=== PATIENT | female | born 1960 | race African-American/Black ===

== ENCOUNTER 2019-11-11 10:37 | Inpatient (IN) | payer BC, OTHER ==
[~2019-11-11] VITALS: Ht 170.2 cm; Wt 129.7 kg
[2019-11-11 11:40] LABS: CHLORIDE 107 mEq/L (98-107)
[2019-11-11 11:41] LABS: CLARITY URINE CLEAR (CLEAR); COLOR URINE YELLOW (YELLOW); KETONES URINE NEGATIVE (NEGATIVE); LEUKOCYTE ESTERASE URINE NEGATIVE (NEGATIVE); NITRITE URINE NEGATIVE (NEGATIVE); OCCULT BLOOD URINE NEGATIVE (NEGATIVE); PH URINE 7.5 (4.5-8.0); PROTEIN URINE NEGATIVE (NEGATIVE); SPECIFIC GRAVITY URINE 1.014 (1.005-1.030); UROBILINOGEN URINE 0.2 E.U./dL (0.2-1.0)
[2019-11-11 11:42] LABS: BASOPHILS % 0.3 % (0.0-2.0); HEMATOCRIT. 38.6 % (36.0-48.0); HEMOGLOBIN. 13.1 g/dL (12.0-16.0); LYMPHOCYTES % 45.3 % (20.0-50.0); MEAN CORPUSCULAR HEMOGLOBIN 24.7 pg (28.0-32.0); MEAN CORPUSCULAR VOLUME 72.9 fL (81.0-99.0); MEAN PLATELET VOLUME 10.8 fl (7.4-10.4); MONOCYTES % 8.3 % (2.0-8.0); NEUTROPHILS % 44.1 % (40.0-76.0); PLATELET 158 x1000/uL (130-400); RED CELL DISTRIBUTION WIDTH 15.1 % (11.6-14.6)
[2019-11-11 11:50] LABS: ETHANOL BLOOD < 10 mg/dL
[2019-11-11 11:56] LABS: *AMPHETAMINES SCREEN URINE NEGATIVE (NEGATIVE); *BARBITURATES SCREEN URINE NEGATIVE (NEGATIVE); *BENZODIAZEPINES SCREEN URINE NEGATIVE (NEGATIVE); *COCAINE SCREEN URINE NEGATIVE (NEGATIVE); METHADONE URINE SCREEN NEGATIVE (NEGATIVE); OPIATES URINE SCREEN NEGATIVE (NEGATIVE)
[2019-11-11 11:57] LABS: CANNABINOID URINE SCREEN NEGATIVE (NEGATIVE); PHENCYCLIDINE URINE SCREEN NEGATIVE (NEGATIVE)
[2019-11-11] MEDS ORDERED: ASPIRIN 325MG EC TABLET PO ONE (13:15)
[2019-11-11] MEDS ORDERED: ONDANSETRON HCL 4MG/2ML INJ IV PRN (13:45)
[2019-11-11] MEDS ORDERED: ACETAMINOPHEN 325MG TABLET PO PRN (13:45)
[2019-11-11] MEDS ORDERED: CLONIDINE 0.1MG TABLET PO PRN (13:45)
[2019-11-11] MEDS ORDERED: DIPHENHYDRAMINE 50MG/ML VIAL IV PRN (13:45)
[2019-11-11] MEDS ORDERED: IPRATROPIUM/ALBUTEROL 0.5-3(2.5)MG/3ML NEB HHN PRN (13:45)
[2019-11-11 14:17] VITALS: BP 168/102
[2019-11-11 15:12] LABS: PHOSPHORUS 3.4 mg/dL (2.5-4.9)
[2019-11-11 15:16] LABS: CREATINE KINASE MB FRACTION 1.3 ng/mL (0.5-3.6)
[2019-11-11 16:00] VITALS: BP 143/82
[2019-11-11 16:18] LABS: FOLIC ACID (FOLATE) SERUM 8.3 ng/mL (>5.38)
[2019-11-11] MEDS: OMEPRAZOLE 20MG CAPSULE EXTENDED RELEASE PO SCH (17:22)
[2019-11-11 17:49] LABS: T4 FREE 1.11 ng/dL (0.76-1.46)
[2019-11-11 18:00] VITALS: BP 140/77
[2019-11-11] MEDS ORDERED: LORAZEPAM 1MG TABLET PO PRN (18:00)
[2019-11-11] MEDS ORDERED: MAGNESIUM 2 G PREMIX 50 ML IV NR (20:00)
[2019-11-11 20:01] VITALS: BP 132/85
[2019-11-11 22:00] VITALS: BP 122/61
[2019-11-12] VITALS (12 sets, daily range): BP systolic 101–153; BP diastolic 51–95
[2019-11-12 00:42] LABS: CREATINE KINASE MB FRACTION 1.1 ng/mL (0.5-3.6)
[2019-11-12 06:24] LABS: BASOPHILS % 0.4 % (0.0-2.0); EOSINOPHILS % 2.4 % (0.0-5.0); HEMATOCRIT. 31.9 % (36.0-48.0); HEMOGLOBIN. 11.1 g/dL (12.0-16.0); LYMPHOCYTES % 48.2 % (20.0-50.0); MEAN CORPUSCULAR VOLUME 71.9 fL (81.0-99.0); MEAN PLATELET VOLUME 10.2 fl (7.4-10.4); MONOCYTES % 11.2 % (2.0-8.0); NEUTROPHILS % 37.8 % (40.0-76.0); PLATELET 128 x1000/uL (130-400); RED BLOOD CELL COUNT 4.44 mill/uL (4.2-5.4); RED CELL DISTRIBUTION WIDTH 14.7 % (11.6-14.6)
[2019-11-12] MEDS: OMEPRAZOLE 20MG CAPSULE EXTENDED RELEASE PO SCH (06:28)
[2019-11-12 06:50] LABS: CHLORIDE 109 mEq/L (98-107)
[2019-11-12 06:58] LABS: LDL CHOLESTEROL 101 mg/dL (5-100)
[2019-11-12 07:00] LABS: HDL CHOLESTEROL 54 mg/dL (40-59)
[2019-11-12] MEDS ORDERED: CYANOCOBALAMIN 1000MCG TABLET PO SCH (07:20)
[2019-11-12] MEDS ORDERED: ASPIRIN 81MG EC TABLET PO SCH (09:00)
[2019-11-12] MEDS ORDERED: ASPIRIN 325MG EC TABLET PO SCH (09:00)
[2019-11-12] MEDS ORDERED: ATOR20TA PO (10:45)
[2019-11-12] MEDS ORDERED: LOSARTAN POTASSIUM 50 MG TABLET PO SCH (11:00)
[2019-11-12] MEDS ORDERED: AMLODIPINE 10MG TABLET PO SCH (11:00)
[2019-11-12] MEDS ORDERED: FAMOTIDINE 20MG TABLET PO SCH (16:50)
[2019-11-12 17:43] LABS: BASOPHILS % 0.3 % (0.0-2.0); EOSINOPHILS % 1.2 % (0.0-5.0); HEMATOCRIT. 34.6 % (36.0-48.0); HEMOGLOBIN. 11.7 g/dL (12.0-16.0); LYMPHOCYTES % 46.6 % (20.0-50.0); MEAN CORPUSCULAR HEMOGLOBIN 24.7 pg (28.0-32.0); MEAN CORPUSCULAR VOLUME 72.9 fL (81.0-99.0); MEAN PLATELET VOLUME 10.4 fl (7.4-10.4); MONOCYTES % 9.5 % (2.0-8.0); NEUTROPHILS % 42.4 % (40.0-76.0); PLATELET 142 x1000/uL (130-400); RED BLOOD CELL COUNT 4.74 mill/uL (4.2-5.4); RED CELL DISTRIBUTION WIDTH 14.9 % (11.6-14.6)
[2019-11-12 17:47] LABS: CHLORIDE 110 mEq/L (98-107)
[2019-11-12] MEDS ORDERED: ATORVASTATIN CALCIUM 20MG TABLET PO SCH (21:00)
== END 2019-11-12 19:10 | disposition home or self-care (01) | DRG 69 ==
LOC: ER 12:55 → 3WST 13:13 → EDBEDREQTM 13:25 → ENRESERV 13:32
PROVIDERS: ADMIT Internal Medicine; ATTEND Internal Medicine
PROC: 4A10X4Z Monitoring of Central Nervous Electrical Activity, External Approach (ICD-10-PCS; principal; 2019-11-12)
DX: G45.9 Transient cerebral ischemic attack, unspecified (principal); G43.909 Migraine, unspecified, not intractable, without status migrainosus; I10 Essential (primary) hypertension; M54.30 Sciatica, unspecified side; Z98.891 History of uterine scar from previous surgery; Z79.899 Other long term (current) drug therapy; Z79.82 Long term (current) use of aspirin; Z79.51 Long term (current) use of inhaled steroids
CPT/HCPCS: 36415; 70544; 70553; 71045; 80048; 80053; 80061; 80305; 80320; 81003; 82550; 82553; 82607; 82746; 82962; 83036; 83735; 84100; 84439; 84443; 84481; 85025; 93306; 93880; 93970; 96365; 97162; 99285; J3475; G0480